=== PATIENT | female | born 1985 | race American Indian/Alaskan Native ===

== ENCOUNTER → 2024-09-10 08:51 | Outpatient (CLI) | payer OTHER ==
[2024-09-10 09:36] LABS: BASO % 0.2 % (0.1-1.2); EOS # 0.07 (0.04-0.54); EOS % 1.4 % (0.7-7.0); HEMOGLOBIN 10.4 g/dL (11.2-15.7); LYMPH # 1.09 (1.18-3.74); LYMPH % 22.5 % (19.3-53.1); MONO # 0.43 (0.24-0.82); MONO % 8.9 % (4.7-12.5); NEUT # 3.24 (1.56-6.13); NEUT % 66.8 % (34.0-71.1); PLATELET COUNT 266 K/uL (163-369); RED BLOOD COUNT 4.34 M/uL (3.93-5.22); RED CELL DISTRIBUTION WIDTH 14.3 % (11.6-14.4)
== END | disposition home or self-care (01) ==
LOC: LAB 08:51
PROVIDERS: ATTEND Internal Medicine Hematology & Oncology
DX: D50.8 Other iron deficiency anemias (principal)

== ENCOUNTER 2024-09-25 08:21 | Outpatient (CLI) | payer OTHER ==
[2024-09-25 10:23] LABS: BASO % 0.2 % (0.1-1.2); EOS # 0.07 (0.04-0.54); EOS % 1.6 % (0.7-7.0); HEMATOCRIT 31.6 % (34.1-44.9); LYMPH # 0.82 (1.18-3.74); MONO # 0.35 (0.24-0.82); MONO % 8.1 % (4.7-12.5); NEUT # 3.05 (1.56-6.13); NEUT % 70.9 % (34.0-71.1); PLATELET COUNT 264 K/uL (163-369); RED BLOOD COUNT 4.34 M/uL (3.93-5.22); RED CELL DISTRIBUTION WIDTH 14.9 % (11.6-14.4)
[2024-09-25 10:58] LABS: % SATURACION 3.2 % (15-50); ALBUMIN 3.6 gm/dL (3.4-5.0); BILIRUBIN TOTAL 0.37 mg/dL (0.3-1.2); CALCIUM 9.1 mg/dL (8.5-10.1); CREATININE SERUM 0.69 mg/dL (0.55-1.02); GFR 94.72; GLOBULINA 3.8 G/DL (2.4-3.5); POTASSIUM 4.36 mEq/L (3.5-5.1); T4 FREE 0.97 NG/ML (0.76-1.46); TOTAL PROTEIN 7.4 gm/dL (6.4-8.2); TSH 0.725 uIU/mL (0.358-3.74)
[2024-09-25 10:59] LABS: FERRITIN 4.5 NG/ML (8-252)
[2024-09-27 09:56] LABS: FOLIC ACID 13.87 ng/ml (4.78-20)
[2024-09-28 11:08] LABS: ANTI THYROID PEROXIDASE 17 IU/mL (0-34); CA 125 27.1 U/mL (0.0-38.1); CA 15-3 10.7 U/mL (0.0-25.0)
[2024-09-28 13:12] LABS: TRANSFERIN 372 mg/dL (192-364)
[2024-09-28 15:08] LABS: hgb a 97.3 % (96.4-98.8); hgb a2 2.7 % (1.8-3.2); hgb f 0 % (0.0-2.0); hgb s 0 % (0.0)
== END 2024-09-25 09:32 | disposition home or self-care (01) ==
LOC: LAB 08:21
PROVIDERS: ATTEND Internal Medicine Hematology & Oncology
DX: D50.8 Other iron deficiency anemias (principal); N92.4 Excessive bleeding in the premenopausal period; R79.9 Abnormal finding of blood chemistry, unspecified; I10 Essential (primary) hypertension; R74.02 Elevation of levels of lactic acid dehydrogenase [LDH]; K76.89 Other specified diseases of liver; D63.8 Anemia in other chronic diseases classified elsewhere; D55.0 Anemia due to glucose-6-phosphate dehydrogenase [G6PD] deficiency; D51.0 Vitamin B12 deficiency anemia due to intrinsic factor deficiency; E03.8 Other specified hypothyroidism; E06.3 Autoimmune thyroiditis; C56.9 Malignant neoplasm of unspecified ovary; R97.8 Other abnormal tumor markers; R97.0 Elevated carcinoembryonic antigen [CEA]